=== PATIENT | male | born 1980 ===

== ENCOUNTER 2020-02-18 20:09 | Emergency (ER) | payer SELFPAY ==
[2020-02-18 20:54] VITALS: BP 123/77; PULSE 68; RESP 16; TEMP 36.8; O2SAT 96; BMI 25.0
[2020-02-18 21:47] LABS: Basophils # 0.1 10^3/uL (0.0-0.1); Basophils % 0.8 %; Eosinophils # 0.2 10^3/uL (0.0-0.8); Hematocrit 45.8 % (42.0-52.0); Hemoglobin 14.9 g/dL (11.7-16.6); Lymphocytes # 3.7 10^3/uL (0.8-4.8); Lymphocytes % 36.5 %; Mean Corpuscular HGB Conc 32.5 g/dL (30.0-36.0); Mean Corpuscular Hemoglobin 28.7 pg (28.0-34.0); Mean Corpuscular Volume 88.1 fL (80-94); Mean Platelet Volume 9.5 fL (7.4-10.4); Monocytes # 0.7 10^3/uL (0.2-0.9); Monocytes % 6.9 %; Neutrophils # 5.5 10^3/uL (1.8-7.7); Neutrophils % 53.4 %; Nucleated Red Blood Cells % 0 %; Platelet Count 350 10^3/cmm (130-400); Red Cell Distribution Width 12.5 % (12.1-15.1); White Blood Count 10.3 10^3/uL (4.0-10.0)
[2020-02-18 22:02] LABS: Alanine Aminotransferase 25 U/L (0-41); Albumin Level 4.9 g/dL (3.5-5.2); Alkaline Phosphatase 82 IU/L (40-130); Anion Gap 17.5 (5-19); Aspartate Amino Transferase 19 U/L (0-40); Blood Urea Nitrogen 13 mg/dL (6-20); Calcium 9.9 mg/dL (8.5-10.5); Carbon Dioxide 26 mmol/L (22-29); Chloride 102 mmol/L (98-107); Glomerular Filtration Rate 82.8 mL/min (90-130); Glucose 102 mg/dL (65-115); Lipase 44 U/L (13-60); Osmolality Calculated 288 mOsm/kg (285-295); Potassium 4.5 mmol/L (3.5-5.1); Sodium 141 mmol/L (136-145); Total Bilirubin 0.5 mg/dL (0.15-1.2); Total Protein 7.9 g/dL (6.6-8.7)
--- NOTE | 2020-02-19 | CTR_ITS ---
PROCEDURE INFORMATION: Exam: CT Abdomen And Pelvis With Contrast Exam date and time: 02/19/2020 12:01 AM Age: 39 years old Clinical indication: Abdominal pain; Generalized TECHNIQUE: Imaging protocol: Computed tomography of the abdomen and pelvis with intravenous contrast. Radiation optimization: All CT scans at this facility use at least one of these dose optimization techniques: automated exposure control; mA and/or kV adjustment per patient size (includes targeted exams where dose is matched to clinical indication); or iterative reconstruction. Contrast material: OMNI 300; Contrast volume: 300 ml; Contrast route: 20G; COMPARISON: No relevant prior studies available. RADIATION DOSE METRICS: Total DLP: 549.59 mGy-cm FINDINGS: Lungs: The lung bases are clear. Liver: Unremarkable. Gallbladder and bile ducts: No definite gallbladder abnormality by CT. No biliary tree dilation. Pancreas: Unremarkable. Spleen: Unremarkable. Adrenals: Unremarkable. Kidneys and ureters: Unremarkable. Stomach and bowel: There are no CT findings to strongly suggest diverticulitis. Appendix: The appendix is visualized and appears normal. Intraperitoneal space: No free air, ascites, or bowel distention. Vasculature: No evidence for abdominal aortic aneurysm. Lymph nodes: No retroperitoneal adenopathy. Bladder: Unremarkable as visualized. Reproductive: Prostate enlargement with transverse diameter of 4.5 cm. Bones/joints: No significant acute finding. Soft tissues: No significant acute finding. CT/CT abdomen pelvis w con* [id number] IMPRESSION: 1. Normal appendix. 2. No free air or bowel distention. 3. Other findings discussed above. Radiation Dose CTDIVOL = (mGy): DLP = 549.59 (mGy-cm)
[2020-02-19 00:04] VITALS: BP 119/80; PULSE 96; RESP 18; O2SAT 98
--- NOTE | 2020-02-19 00:21 | ED_ITS ---
HPI - Abdominal Pain General: Chief Complaint: Abdominal Pain Stated Complaint: lower right abd pain Time Seen by Provider: 02/18/20 23:54 Source: patient and seismic interpreter (Miri Stanley Pt.'s friend.) History of Present Illness: HPI narrative: Jerzy is a 39-year-old male who comes in complaining of right lower quadrant pain. States his pain began yesterday and has gradually worsened. He describes the pain as sharp in nature but there is always a dull ache present. He has had a loss of appetite but denies any nausea or vomiting. Denies any fevers or chills. He denies any urinary symptoms. He is not had any hematuria, radiation of his pain and he adamantly denies any testicular or penile pain. He denies having anything like this before. He denies injury to the area. He is unaware of anything that makes the symptoms better or worse. The patient states he has had pain similar to this in the past on the other side of his abdomen and he was diagnosed at that time with diverticulitis. He denies any blood in his stools, black tarry stools or diarrhea. He does not feel constipated. Associated Symptoms: Denies chills, coffee ground emesis, constipation, GI cramping, diarrhea, dysuria, fever(s), heartburn, hematochezia, hematuria, hematemesis, melena, nausea, syncope and vomiting Review of Systems Const: Denies: fever(s), chills, body aches, fatigue, malaise or diaphoresis Eyes: Denies: change in vision, blurry vision, blind spots or photophobia ENMT: Denies: throat pain, odynophagia, hoarseness, swelling of lips/tongue, ear or mastoid pain, ear discharge, change in hearing or nasal discharge Card: Denies: chest pain, palpitations, irregular heart rhythm, edema, lightheadedness, syncope, pre-syncope, dyspnea on exertion or orthopnea Resp: Denies: dyspnea, productive cough, non-productive cough, wheezing, hemoptysis or chest congestion GI: Reports: abdominal pain; Denies: nausea, vomiting, hematemesis, coffee ground emesis, heartburn, diarrhea, constipation, GI cramping, hematochezia or melena : Denies: flank pain, dysuria, urinary frequency, urinary urgency or hematuria Musc: Denies: neck pain, back pain, extremity pain, extremity swelling, joint pain, joint swelling, joint redness, joint warmth or joint stiffness Skin/Breast: Denies: rash, pruritus, erythema, skin tenderness or jaundice Neuro: Denies: headache(s), numbness in extremities, weakness in extremities, sensory changes, lack of coordination, difficulty walking, dizziness, vertigo, confusion or Slurred speech present Ananth/Lymph: Denies: easy bruising, easy bleeding, petechiae, purpura or enlarged lymph nodes All/Imm: Denies: urticaria, throat swelling, tongue swelling, facial swelling or acute wheezing PFSH ED PFSH: Medical History Diverticulosis Surgical History No history of previous surgery Social History Smoking and tobacco status: never smoked Physical Exam Const: COMMON NORMALS: no acute distress, patient oriented x3, no limitations, healthy appearing and well nourished GENERAL APPEARANCE: cooperative, well kempt and well developed HENMT: COMMON NORMALS: normocephalic, atraumatic, hearing grossly normal bilaterally, external ears normal, EAC's normal, Normal external nose present and moist oral mucous membranes HEAD & SCALP: normocephalic and atraumatic NOSE: Normal external nose present and Normal nares present EXTERNAL EAR: Yes external ears normal EXTERNAL AUDITORY CANAL: EAC's normal MOUTH: Normal oral and palatal mucosa present, lip normal and tongue normal Eye: COMMON NORMALS: Equal, round and reactive pupils present, EOMs intact bilaterally, conjunctivae normal and no scleral icterus GENERAL EYE: appearance normal, both eyes and all related structures ALIGNMENT: Yes alignment normal PERIORBITAL: periorbital findings normal EYELID: eyelids normal CONJUNCTIVA: Yes conjunctivae normal SCLERA: sclerae normal PUPIL: Yes Equal, round and reactive pupils present Neck/C-Spine: COMMON NORMALS: full ROM, no lymphadenopathy, supple, no meningeal signs and no JVD GENERAL: Yes normal visual inspection and Yes trachea midline Chest: COMMONS NORMALS: normal inspection of the chest and normal palpation of entire chest wall Resp: COMMON NORMALS: normal respiratory effort, No retractions, No use of accessory muscles and clear to auscultation bilaterally EFFORT & INSPECTION: Yes able to speak in complete sentences and Yes symmetric chest movement AUSCULTATION: clear to auscultation bilaterally, no crackles, no rales, no rhonchi and no wheezes Cardio: COMMON NORMALS: no JVD, regular rate, regular rhythm, S1 normal heart sound present, S2 normal heart sound present, No gallops present (Cardio), No clicks present (Cardio), No murmurs present (Cardio) and No rub (Cardio) RATE: regular rate RHYTHM: regular rhythm HEART SOUNDS: S1 normal heart sound present and S2 normal heart sound present GI: COMMON NORMALS: Soft to palpation and No hepatosplenomegaly present PALPATION: Yes Soft to palpation, Yes Tenderness to palpation present (GI) Details: RLQ (Mild without rebound or guarding.), No Guarding due to palpation present (GI), No Rigid due to palpation, Yes No hepatosplenomegaly present, No Hernia present, No Palpable mass present and No Pulsatile mass present : COMMON NORMALS: Yes no CVA tenderness, Yes Testes normal, Yes scrotum normal, Yes no scrotal swelling and Yes No hernias present BLADDER/KIDNEY EXAM: Yes no CVA tenderness SCROTUM: Yes testes descended bilaterally TESTES: Yes testicular lie normal, No Enlarged testicle(s) present, No testicular swelling, No testicular tenderness, No testicular mass and Yes epididymides normal Back/Pelvis: COMMON NORMALS: no CVA tenderness, thoracic and lumbar spine normal to inspection, no thoracic nor lumbar tenderness and thoraco-lumbar ROM normal Extremity: COMMON NORMALS: normal to inspection, full ROM, capillary refill normal, no joint enlargement, no clubbing, cyanosis or edema and no calf tenderness Neuro: COMMON NORMALS: patient oriented x3, CN's II-XII intact bilaterally, moves all extremities, no focal motor deficits and no sensory deficits noted MENINGEAL SIGNS: Yes no meningeal signs SPEECH: speech normal Psych: COMMON NORMALS: mental status grossly normal, Normal thought process present, cooperative, normal affect, speech normal and activity/motor behavior normal APPEARANCE: Yes well kempt SPEECH: Yes normal speech THOUGHT PROCESS: Normal thought process present Skin: COMMON NORMALS: no rashes or lesions noted, turgor normal, no jaundice, no petechiae and no mottling GENERAL SKIN EXAM: no rashes or lesions noted and turgor normal Course Vital Signs: Vital signs: Vital Signs Temperature 98.2 F 02/18/20 20:54 Pulse Rate 64 02/19/20 03:34 Respiratory Rate 18 02/19/20 03:34 Blood Pressure 117/77 02/19/20 03:34 Pulse Oximetry 97 02/19/20 03:34 MDM - Abdominal Pain MDM Narrative: Medical decision making narrative: Jerzy is a nice 39-year-old male who comes in complaining of right lower quadrant pain for 2 days. On examination he has no rebound tenderness but does have tenderness to palpation in the right lower quadrant. There is no rebound, no guarding and no rigidity. The patient has no fever and has not been vomiting. His testicular and penile exam are normal. CT scan does not reveal any evidence of appendicitis or diverticulitis. I have informed the patient that he needs to return here within 12 hours for recheck if his pain has not gone away. It is possible that appendicitis is developing but he was scanned too early to pick it up. Based upon his history I expected to see something if it was going to be positive but it is not possible that this is still early and he may need to have another examination and CT scan. The patient agreed to this plan had no questions or concerns. I did utilize his friend as an seismic interpreter and he had no questions. He was able to understand Dominican but he just could not speak it. At the time of discharge the patient was feeling better but did agree to return regardless for recheck. Differential Diagnosis: Differential diagnosis abdominal pain: Likely abdominal pain, acute appendicitis, calculus of kidney, constipation, diverticulitis, gastroenteritis, pancreatitis and small bowel obstruction Lab Data: Attestation: I reviewed the patient's lab results. Labs: Lab Results 02/18/20 02/18/20 02/19/20 Range/Units 21:35 21:35 00:35 WBC 10.3 H (4.0-10.0) 10^3/ uL RBC 5.20 (4.1-5.3) 10^6/u L Hgb 14.9 (11.7-16.6) g/dL Hct 45.8 (42.0-52.0) % MCV 88.1 (80-94) fL MCH 28.7 (28.0-34.0) pg MCHC 32.5 (30.0-36.0) g/dL RDW 12.5 (12.1-15.1) % Plt Count 350 (130-400) 10^3/c mm MPV 9.5 (7.4-10.4) fL Neut % (Auto) 53.4 % Lymph % (Auto) 36.5 % [place] % (Auto) 6.9 % Eos % (Auto) 2.0 % Baso % (Auto) 0.8 % Neut # (Auto) 5.5 (1.8-7.7) 10^3/u L Lymph # (Auto) 3.7 (0.8-4.8) 10^3/u L [place] # (Auto) 0.7 (0.2-0.9) 10^3/u L Eos # (Auto) 0.2 (0.0-0.8) 10^3/u L Baso # (Auto) 0.1 (0.0-0.1) 10^3/u L Nucleated RBC % (a uto) 0 % Nucleated RBCs # 0.0 /100WBC Sodium 141 (136-145) mmol/L Potassium 4.5 (3.5-5.1) mmol/L Chloride 102 (98-107) mmol/L Carbon Dioxide 26 (22-29) mmol/L Anion Gap 17.5 (5-19) BUN 13 (6-20) mg/dL Creatinine 1.0 (0.7-1.2) mg/dL GFR Calculation 82.8 L (90-130) mL/min Glucose 102 (65-115) mg/dL Calculated Osmolal ity 288 (285-295) mOsm/k g Lactic Acid (0.5-2.2) mmol/L Calcium 9.9 (8.5-10.5) mg/dL Total Bilirubin 0.5 (0.15-1.2) mg/dL AST 19 (0-40) U/L ALT 25 (0-41) U/L Alkaline Phosphata se 82 (40-130) IU/L Total Protein 7.9 (6.6-8.7) g/dL Albumin 4.9 (3.5-5.2) g/dL Globulin 3.0 (1.3-4.6) g/dL Lipase 44 (13-60) U/L Urine Color Yellow (Yellow) Urine Appearance Clear (CLEAR) Urine pH 6 (5-7) Ur Specific Gravit y 1.020 (1.005-1.030) Urine Protein Neg (Negative) Urine Glucose (UA) Norm (Normal) Urine Ketones Negative (Negative) Urine Blood Neg (Negative) Urine Nitrate Negative (Negative) Urine Bilirubin Neg (NEGATIVE) Urine Urobilinogen Norm (Negative) mg/dL Ur Leukocyte Elke ase Negative (Negative) 02/19/20 Range/Units 03:00 WBC (4.0-10.0) 10^3/ uL RBC (4.1-5.3) 10^6/u L Hgb (11.7-16.6) g/dL Hct (42.0-52.0) % MCV (80-94) fL MCH (28.0-34.0) pg MCHC (30.0-36.0) g/dL RDW (12.1-15.1) % Plt Count (130-400) 10^3/c mm MPV (7.4-10.4) fL Neut % (Auto) % Lymph % (Auto) % [place] % (Auto) % Eos % (Auto) % Baso % (Auto) % Neut # (Auto) (1.8-7.7) 10^3/u L Lymph # (Auto) (0.8-4.8) 10^3/u L [place] # (Auto) (0.2-0.9) 10^3/u L Eos # (Auto) (0.0-0.8) 10^3/u L Baso # (Auto) (0.0-0.1) 10^3/u L Nucleated RBC % (a uto) % Nucleated RBCs # /100WBC Sodium (136-145) mmol/L Potassium (3.5-5.1) mmol/L Chloride (98-107) mmol/L Carbon Dioxide (22-29) mmol/L Anion Gap (5-19) BUN (6-20) mg/dL Creatinine (0.7-1.2) mg/dL GFR Calculation (90-130) mL/min Glucose (65-115) mg/dL Calculated Osmolal ity (285-295) mOsm/k g Lactic Acid 0.8 (0.5-2.2) mmol/L Calcium (8.5-10.5) mg/dL Total Bilirubin (0.15-1.2) mg/dL AST (0-40) U/L ALT (0-41) U/L Alkaline Phosphata se (40-130) IU/L Total Protein (6.6-8.7) g/dL Albumin (3.5-5.2) g/dL Globulin (1.3-4.6) g/dL Lipase (13-60) U/L Urine Color (Yellow) Urine Appearance (CLEAR) Urine pH (5-7) Ur Specific Gravit y (1.005-1.030) Urine Protein (Negative) Urine Glucose (UA) (Normal) Urine Ketones (Negative) Urine Blood (Negative) Urine Nitrate (Negative) Urine Bilirubin (NEGATIVE) Urine Urobilinogen (Negative) mg/dL Ur Leukocyte Elke ase (Negative) Imaging Data ^: CT Abd/Pel: Radiologist's impression: [place] [address] CT Scan Report Signed Patient: Jerzy Hanks Unit #: [id number] : 1980 Age/Sex: 39 / M ADM Date: 02/18/20 Loc: ER Room/Bed: Attending Dr: Ordering Provider/Ordering MD: Renetta Khoury DO Date of Service: 02/19/20 Procedure(s): CT abdomen pelvis w con* [id number] Accession Number(s): [id number] Report Number: [id number] PROCEDURE INFORMATION: Exam: CT Abdomen And Pelvis With Contrast Exam date and time: 02/19/2020 12:01 AM Age: 39 years old Clinical indication: Abdominal pain; Generalized TECHNIQUE: Imaging protocol: Computed tomography of the abdomen and pelvis with intravenous contrast. Radiation optimization: All CT scans at this facility use at least one of these dose optimization techniques: automated exposure control; mA and/or kV adjustment per patient size (includes targeted exams where dose is matched to clinical indication); or iterative reconstruction. Contrast material: OMNI 300; Contrast volume: 300 ml; Contrast route: 20G; COMPARISON: No relevant prior studies available. RADIATION DOSE METRICS: Total DLP: 549.59 mGy-cm FINDINGS: Lungs: The lung bases are clear. Liver: Unremarkable. Gallbladder and bile ducts: No definite gallbladder abnormality by CT. No biliary tree dilation. Pancreas: Unremarkable. Spleen: Unremarkable. Adrenals: Unremarkable. Kidneys and ureters: Unremarkable. Stomach and bowel: There are no CT findings to strongly suggest diverticulitis. Appendix: The appendix is visualized and appears normal. Intraperitoneal space: No free air, ascites, or bowel distention. Vasculature: No evidence for abdominal aortic aneurysm. Lymph nodes: No retroperitoneal adenopathy. Bladder: Unremarkable as visualized. Reproductive: Prostate enlargement with transverse diameter of 4.5 cm. Bones/joints: No significant acute finding. Soft tissues: No significant acute finding. CT/CT abdomen pelvis w con* [id number] IMPRESSION: 1. Normal appendix. 2. No free air or bowel distention. 3. Other findings discussed above. Radiation Dose CTDIVOL = (mGy): DLP = 549.59 (mGy-cm) Dictated By: Rey Vargas MD Signed By: Rey Vargas MD Signed Date/Time: 02/19/20240 DD/ 7 Discharge Plan Discharge Patient Disposition: Home, Self-Care Clinical Impression: Abdominal pain Qualifiers: Abdominal location: right lower quadrant Qualified Code(s): R10.31 - Right lower quadrant pain Condition: Stable Prescriptions: No Action No Known Home Medications RF: 0 Discharge Orders: Discharge Order (Routine); Ordered 02/19/20 Ordered By: Renetta Khoury Referrals: Renetta Khoury [Emergency Provider] - (Return here to the ER tomorrow by noon if your pain persists and is not improving or gone. Return sooner if your symptoms worsen at all.) Bossman Leung MD [Physician] - 1-3 days Discharge Diet: Advance as tolerated and Clear Liquid Discharge Activity: Increase activity as tolerated Patient Instructions: Abdominal Pain (ED) Activity Restrictions/Additional Instructions: Please return to the ER immediately for any of the signs or symptoms listed on your discharge instruction sheets, worsening/changing of your symptoms, you are not getting better as quickly as expected, or for ANY other cause or concerns. A cause for your symptoms has not been determined. Developing appendicitis is still a possibility. If your pain is not gone by noon today please return to the ER for reevaluation to determine if appendicitis could be developing. Return to the ER sooner for increased pain, new onset of fever, you began to vomit, you have pain or burning when you urinate, you develop testicular pain, or for any other cause for concern. Stand Alone Forms: Work/School Release Discharge Date/Time: 02/19/20 03:36 Coding Level of Care Code ED Material Control Associate for Lasha Fwd Exam Comprehensive
[2020-02-19] MEDS: sodium chloride 0.9% 1,000 ML 100 ML IV (00:26)
[2020-02-19] MEDS: ondansetron 2 mg/ML SDV 2 mL 4 MG IVP (00:27)
[2020-02-19 00:40] VITALS: O2SAT 99
[2020-02-19 00:48] LABS: Add Urine Microscopic? NO
[2020-02-19 00:49] LABS: Bilirubin Urine Neg (NEGATIVE); Blood Urine Neg (Negative); Glucose Urine UA Norm (Normal); Ketones Urine Negative (Negative); Leukocyte Esterase Urine Negative (Negative); Nitrate Urine Negative (Negative); Protein Urine Neg (Negative); Urine Appearance Clear (CLEAR); Urine Color Yellow (Yellow); Urobilinogen Urine Norm (Negative); pH Urine 6 (5-7)
[2020-02-19] MEDS: iohexol 300 mg/mL 100 mL Btl IV (01:56)
[2020-02-19 03:17] LABS: Lactic Sepsis W/Reflex 0.8 mmol/L (0.5-2.2)
[2020-02-19 03:34] VITALS: BP 117/77; PULSE 64; RESP 18; O2SAT 97
--- NOTE | 2020-02-19 10:10 | DCPLANNER ---
annual greenhouse manager had message to schedule a follow up appointment for patient with general surgery. annual greenhouse manager called [facility], spoke with Rosa, gave clinic patients information. A follow up appointment was scheduled for Saturday, February 22, 2020 at 3:00. Clinic will call patient with appointment information.
--- NOTE | 2020-02-23 07:30 | DCPLANNER ---
Patient did not attend appointment scheduled for 02.22.20 with [facility].
== END 2020-02-19 03:36 | disposition home or self-care (01) ==
PROVIDERS: Nurse Practitioner Family; Emergency Provider Emergency Medicine
DX: R10.31 Right lower quadrant pain (principal)
CPT/HCPCS: 12345; 74177; 80053; 81003; 83605; 83690; 85025; 96361; 96374; 96375; 99282; 99283; J2405; J7030; Q9967

== ENCOUNTER 2020-02-19 20:12 | Emergency (ER) | payer SELFPAY ==
[2020-02-19 20:16] VITALS: BP 114/78; PULSE 91; RESP 16; TEMP 36.6; O2SAT 95; BMI 25.0
[2020-02-19 20:31] LABS: Basophils # 0.1 10^3/uL (0.0-0.1); Basophils % 0.6 %; Eosinophils # 0.2 10^3/uL (0.0-0.8); Eosinophils % 2.5 %; Hematocrit 45.4 % (42.0-52.0); Hemoglobin 14.9 g/dL (11.7-16.6); Lymphocytes # 3.1 10^3/uL (0.8-4.8); Lymphocytes % 33.3 %; Mean Corpuscular HGB Conc 32.8 g/dL (30.0-36.0); Mean Corpuscular Hemoglobin 28.9 pg (28.0-34.0); Mean Platelet Volume 9.3 fL (7.4-10.4); Monocytes # 0.6 10^3/uL (0.2-0.9); Monocytes % 6.5 %; Neutrophils # 5.3 10^3/uL (1.8-7.7); Neutrophils % 56.6 %; Nucleated Red Blood Cells % 0 %; Platelet Count 354 10^3/cmm (130-400); Red Blood Count 5.16 10^6/uL (4.1-5.3); Red Cell Distribution Width 12.4 % (12.1-15.1); White Blood Count 9.4 10^3/uL (4.0-10.0)
--- NOTE | 2020-02-19 20:32 | USR_ITS ---
PROCEDURE INFORMATION: Exam: US Scrotum Exam date and time: 02/19/2020 8:54 PM Age: 39 years old Clinical indication: Flank pain; Patient HX: PT has abdomen pain. Had a CT last night in er TECHNIQUE: Imaging protocol: Real-time ultrasound of the scrotum and contents with color Doppler and image documentation. COMPARISON: No relevant prior studies available. FINDINGS: Right testicle: The right testicle measures 3.0 by 4.8 x 2.6 cm. Testicular size and echogenicity is normal. The testicle is normally perfused as seen on color Doppler with spectral analysis. Left testicle: The left testicle measures 4.8 x 1.9 by 3.2 cm and has normal size and echogenicity. The testicle is normally perfused as seen on color Doppler spectral analysis. Epididymides: The right epididymal head is unremarkable. There is small right hydrocele. The left epididymal head measures 1.1 cm and is perfused and unremarkable. Scrotum: There is small left hydrocele. US/US scrotum [id number] IMPRESSION: 1. Normal testes and epididymides. 2. Small bilateral hydroceles, possibly physiologic
--- NOTE | 2020-02-19 20:32 | USR_ITS ---
PROCEDURE INFORMATION: Exam: US Abdomen Complete Exam date and time: 02/19/2020 8:54 PM Age: 39 years old Clinical indication: Abdominal pain; Flank; Right upper quadrant (ruq); Patient HX: PT has been in 2 days in a row with abd pain. CT done last night TECHNIQUE: Imaging protocol: Real-time ultrasound of the abdomen with image documentation. COMPARISON: CT abdomen pelvis w con* [id number] 02/19/2020 1:45 AM FINDINGS: Liver: The liver measures up to 15.5 cm and has normal size and echogenicity. Gallbladder: The gallbladder is contracted, limiting evaluation. Grossly no stones , sludge or surrounding edema. No sonographic Mcgill sign. Common bile duct: The common bile duct measures 3-4 mm which is normal. No dilatation of the biliary tree. Pancreas: The pancreas is mostly obscured by bowel gas. Right kidney: The right kidney measures 9.2 x 4.5 x 5.4 cm and is unremarkable. No shadowing stones or obstruction. Left kidney: The left kidney measures 9.7 x 6.1 x 5.8 cm and is unremarkable. No shadowing stones or obstruction. Spleen: The spleen measures up to 11.3 cm and is unremarkable. Aorta: The visualized abdominal aorta and IVC are normal. Inferior vena cava: Normal. Intraperitoneal space: No free fluid. US/US abdomen complete* [id number] IMPRESSION: 1. No significant abdominal findings. 2. Contracted gallbladder. No visible stones or sludge. No dilatation of the biliary tree
[2020-02-19] MEDS: ondansetron 2 mg/ML SDV 2 mL 4 MG IVP (20:41)
[2020-02-19] MEDS: sodium chloride 0.9% 1,000 ML 999 ML IV (20:41)
[2020-02-19 20:45] LABS: Alanine Aminotransferase 22 U/L (0-41); Albumin Level 4.5 g/dL (3.5-5.2); Alkaline Phosphatase 85 IU/L (40-130); Anion Gap 15.5 (5-19); Aspartate Amino Transferase 21 U/L (0-40); Blood Urea Nitrogen 9 mg/dL (6-20); Calcium 9.5 mg/dL (8.5-10.5); Carbon Dioxide 29 mmol/L (22-29); Chloride 98 mmol/L (98-107); Globulin 2.7 g/dL (1.3-4.6); Glomerular Filtration Rate 74.1 mL/min (90-130); Glucose 96 mg/dL (65-115); Lipase 65 U/L (13-60); Osmolality Calculated 282 mOsm/kg (285-295); Potassium 4.5 mmol/L (3.5-5.1); Sodium 138 mmol/L (136-145); Total Bilirubin 0.5 mg/dL (0.15-1.2); Total Protein 7.2 g/dL (6.6-8.7)
[2020-02-19 20:47] VITALS: BP 114/74; PULSE 70; RESP 18; O2SAT 97
--- NOTE | 2020-02-19 21:11 | ED_ITS ---
HPI - Abdominal Pain General: Chief Complaint: Abdominal Pain Stated Complaint: abd pain; recheck Time Seen by Provider: 02/19/20 20:16 History of Present Illness: HPI narrative: Jeryz is a very nice 39-year-old male who comes in complaining of continued abdominal pain. He states the pain waxes and wanes and does go away sometimes intermittently. I saw him last night for a similar complaint and he had a normal CT scan. He had no right upper quadrant pain he had no testicular pain. Patient returns though saying at this time his pain is worse than it was last night but it had gone away earlier today. He had eaten shortly before he came in and his symptoms returned. He denies any nausea or vomiting, fevers or chills, diarrhea or constipation, or urinary symptoms. Associated Symptoms: Denies chills, coffee ground emesis, constipation, GI cramping, diarrhea, dysuria, fever(s), heartburn, hematochezia, hematuria, hematemesis, melena, nausea, syncope and vomiting Review of Systems Const: Denies: fever(s), chills, body aches, fatigue, malaise or diaphoresis Eyes: Denies: change in vision, blurry vision, blind spots or photophobia ENMT: Denies: throat pain, odynophagia, hoarseness, swelling of lips/tongue, ear or mastoid pain, ear discharge, change in hearing or nasal discharge Card: Denies: chest pain, palpitations, irregular heart rhythm, edema, lightheadedness, syncope, pre-syncope, dyspnea on exertion or orthopnea Resp: Denies: dyspnea, productive cough, non-productive cough, wheezing, hemoptysis or chest congestion GI: Reports: abdominal pain; Denies: nausea, vomiting, hematemesis, coffee ground emesis, heartburn, diarrhea, constipation, GI cramping, hematochezia or melena : Denies: flank pain, dysuria, urinary frequency, urinary urgency or hematuria Musc: Denies: neck pain, back pain, extremity pain, extremity swelling, joint pain, joint swelling, joint redness, joint warmth or joint stiffness Skin/Breast: Denies: rash, pruritus, erythema, skin tenderness or jaundice Neuro: Denies: headache(s), numbness in extremities, weakness in extremities, sensory changes, lack of coordination, difficulty walking, dizziness, vertigo, confusion or Slurred speech present Ananth/Lymph: Denies: easy bruising, easy bleeding, petechiae, purpura or enlarged lymph nodes All/Imm: Denies: urticaria, throat swelling, tongue swelling, facial swelling or acute wheezing PFSH ED PFSH: Medical History Diverticulosis Surgical History No history of previous surgery Social History Smoking and tobacco status: never smoked Physical Exam Const: COMMON NORMALS: no acute distress, patient oriented x3, no limitations, healthy appearing and well nourished GENERAL APPEARANCE: cooperative, well kempt and well developed HENMT: COMMON NORMALS: normocephalic, atraumatic, hearing grossly normal bilaterally, external ears normal, EAC's normal, Normal external nose present and moist oral mucous membranes HEAD & SCALP: normocephalic and atraumatic NOSE: Normal external nose present and Normal nares present EXTERNAL EAR: Yes external ears normal EXTERNAL AUDITORY CANAL: EAC's normal MOUTH: Normal oral and palatal mucosa present, lip normal and tongue normal Eye: COMMON NORMALS: Equal, round and reactive pupils present, EOMs intact bilaterally, conjunctivae normal and no scleral icterus GENERAL EYE: appearance normal, both eyes and all related structures ALIGNMENT: Yes alignment normal PERIORBITAL: periorbital findings normal EYELID: eyelids normal CONJUNCTIVA: Yes conjunctivae normal SCLERA: sclerae normal PUPIL: Yes Equal, round and reactive pupils present Neck/C-Spine: COMMON NORMALS: full ROM, no lymphadenopathy, supple, no meningeal signs and no JVD GENERAL: Yes normal visual inspection and Yes trac hea midline Chest: COMMONS NORMALS: normal inspection of the chest and normal palpation of entire chest wall Resp: COMMON NORMALS: normal respiratory effort, No retractions, No use of accessory muscles and clear to auscultation bilaterally EFFORT & INSPECTION: Yes able to speak in complete sentences and Yes symmetric chest movement AUSCULTATION: clear to auscultation bilaterally, no crackles, no rales, no rhonchi and no wheezes Cardio: COMMON NORMALS: no JVD, regular rate, regular rhythm, S1 normal heart sound present, S2 normal heart sound present, No gallops present (Cardio), No clicks present (Cardio), No murmurs present (Cardio) and No rub (Cardio) RATE: regular rate RHYTHM: regular rhythm HEART SOUNDS: S1 normal heart sound present and S2 normal heart sound present GI: COMMON NORMALS: Soft to palpation and No hepatosplenomegaly present PALPATION: Yes Soft to palpation, Yes Tenderness to palpation present (GI) (Right upper quadrant and right lower quadrant. No rebound, no guarding and no rigidity.), No Guarding due to palpation present (GI), No Rigid due to palpation, Yes No hepatosplenomegaly present, No Hernia present, No Palpable mass present and No Pulsatile mass present : COMMON NORMALS: Yes no CVA tenderness BLADDER/KIDNEY EXAM: Yes no CVA tenderness Back/Pelvis: COMMON NORMALS: no CVA tenderness, thoracic and lumbar spine normal to inspection, no thoracic nor lumbar tenderness and thoraco-lumbar ROM normal Extremity: COMMON NORMALS: normal to inspection, full ROM, capillary refill normal, no joint enlargement, no clubbing, cyanosis or edema and no calf tenderness Neuro: COMMON NORMALS: patient oriented x3, CN's II-XII intact bilaterally, moves all extremities, no focal motor deficits and no sensory deficits noted MENINGEAL SIGNS: Yes no meningeal signs SPEECH: speech normal Psych: COMMON NORMALS: mental status grossly normal, Normal thought process present, cooperative, normal affect, speech normal and activity/motor behavior normal APPEARANCE: Yes well kempt SPEECH: Yes normal speech THOUGHT PROCESS: Normal thought process present Skin: COMMON NORMALS: no rashes or lesions noted, turgor normal, no jaundice, no petechiae and no mottling GENERAL SKIN EXAM: no rashes or lesions noted and turgor normal Course ED course: 2213 -patient's ultrasounds are unremarkable for a cause for his pain. Patient agrees to go ahead with a repeat CT scan to rule out appendicitis. Vital Signs: Vital signs: Vital Signs Temperature 97.9 F 02/19/20 20:16 Pulse Rate 78 02/19/20 23:33 Respiratory Rate 16 02/19/20 23:33 Blood Pressure 114/74 02/19/20 20:47 Pulse Oximetry 98 02/19/20 23:33 MDM - Abdominal Pain MDM Narrative: Medical decision making narrative: Jerzy is a 39-year-old male who comes in after recurrence of abdominal pain since being seen yesterday. Tonight he has negative ultrasounds of his testicles, gallbladder and a normal CT scan of his abdomen and pelvis. The patient agrees to follow-up with Dr. Leung as he has an appointment with him on Saturday. It is possible he is having biliary colic secondary to dyskinetic gallbladder. He understands the reasons for which to return here should his symptoms change or worsen. Further care can be dictated by Dr. Leung. Lab Data: Attestation: I reviewed the patient's lab results. Labs: Lab Results 02/19/20 02/19/20 02/19/20 Range/Units 20:24 20:24 20:24 WBC 9.4 (4.0-10.0) 10^3/ uL RBC 5.16 (4.1-5.3) 10^6/u L Hgb 14.9 (11.7-16.6) g/dL Hct 45.4 (42.0-52.0) % MCV 88.0 (80-94) fL MCH 28.9 (28.0-34.0) pg MCHC 32.8 (30.0-36.0) g/dL RDW 12.4 (12.1-15.1) % Plt Count 354 (130-400) 10^3/c mm MPV 9.3 (7.4-10.4) fL Neut % (Auto) 56.6 % Lymph % (Auto) 33.3 % Imperial % (Auto) 6.5 % Eos % (Auto) 2.5 % Baso % (Auto) 0.6 % Neut # (Auto) 5.3 (1.8-7.7) 10^3/u L Lymph # (Auto) 3.1 (0.8-4.8) 10^3/u L Imperial # (Auto) 0.6 (0.2-0.9) 10^3/u L Eos # (Auto) 0.2 (0.0-0.8) 10^3/u L Baso # (Auto) 0.1 (0.0-0.1) 10^3/u L Nucleated RBC % (a uto) 0 % Nucleated RBCs # 0.0 /100WBC ESR 9 (0-10) mm/hr Sodium 138 (136-145) mmol/L Potassium 4.5 (3.5-5.1) mmol/L Chloride 98 (98-107) mmol/L Carbon Dioxide 29 (22-29) mmol/L Anion Gap 15.5 (5-19) BUN 9 (6-20) mg/dL Creatinine 1.1 (0.7-1.2) mg/dL GFR Calculation 74.1 L (90-130) mL/min Glucose 96 (65-115) mg/dL Calculated Osmolal ity 282 L (285-295) mOsm/k g Lactic Acid (0.5-2.2) mmol/L Calcium 9.5 (8.5-10.5) mg/dL Total Bilirubin 0.5 (0.15-1.2) mg/dL AST 21 (0-40) U/L ALT 22 (0-41) U/L Alkaline Phosphata se 85 (40-130) IU/L C-Reactive Protein (0.0-4.9) mg/L Total Protein 7.2 (6.6-8.7) g/dL Albumin 4.5 (3.5-5.2) g/dL Globulin 2.7 (1.3-4.6) g/dL Lipase 65 H (13-60) U/L Urine Color (Yellow) Urine Appearance (CLEAR) Urine pH (5-7) Ur Specific Gravit y (1.005-1.030) Urine Protein (Negative) Urine Glucose (UA) (Normal) Urine Ketones (Negative) Urine Blood (Negative) Urine Nitrate (Negative) Urine Bilirubin (NEGATIVE) Urine Urobilinogen (Negative) mg/dL Ur Leukocyte Elke ase (Negative) Urine RBC (0-2) /hpf Urine WBC (0-5) /hpf Ur Squamous Epith Cells (0-5) Urine Bacteria (NONE) Urine Mucus Urine Sperm 02/19/20 02/19/20 02/19/20 Range/Units 20:24 21:54 22:00 WBC (4.0-10.0) 10^3/ uL RBC (4.1-5.3) 10^6/u L Hgb (11.7-16.6) g/dL Hct (42.0-52.0) % MCV (80-94) fL MCH (28.0-34.0) pg MCHC (30.0-36.0) g/dL RDW (12.1-15.1) % Plt Count (130-400) 10^3/c mm MPV (7.4-10.4) fL Neut % (Auto) % Lymph % (Auto) % Imperial % (Auto) % Eos % (Auto) % Baso % (Auto) % Neut # (Auto) (1.8-7.7) 10^3/u L Lymph # (Auto) (0.8-4.8) 10^3/u L Imperial # (Auto) (0.2-0.9) 10^3/u L Eos # (Auto) (0.0-0.8) 10^3/u L Baso # (Auto) (0.0-0.1) 10^3/u L Nucleated RBC % (a uto) % Nucleated RBCs # /100WBC ESR (0-10) mm/hr Sodium (136-145) mmol/L Potassium (3.5-5.1) mmol/L Chloride (98-107) mmol/L Carbon Dioxide (22-29) mmol/L Anion Gap (5-19) BUN (6-20) mg/dL Creatinine (0.7-1.2) mg/dL GFR Calculation (90-130) mL/min Glucose (65-115) mg/dL Calculated Osmolal ity (285-295) mOsm/k g Lactic Acid 1.0 (0.5-2.2) mmol/L Calcium (8.5-10.5) mg/dL Total Bilirubin (0.15-1.2) mg/dL AST (0-40) U/L ALT (0-41) U/L Alkaline Phosphata se (40-130) IU/L C-Reactive Protein 1.2 (0.0-4.9) mg/L Total Protein (6.6-8.7) g/dL Albumin (3.5-5.2) g/dL Globulin (1.3-4.6) g/dL Lipase (13-60) U/L Urine Color Yellow (Yellow) Urine Appearance Clear (CLEAR) Urine pH 7 (5-7) Ur Specific Gravit y 1.005 (1.005-1.030) Urine Protein Neg (Negative) Urine Glucose (UA) Norm (Normal) Urine Ketones Negative (Negative) Urine Blood Neg (Negative) Urine Nitrate Negative (Negative) Urine Bilirubin Neg (NEGATIVE) Urine Urobilinogen Norm (Negative) mg/dL Ur Leukocyte Elke ase Negative (Negative) Urine RBC None (0-2) /hpf Urine WBC 0-4 H (0-5) /hpf Ur Squamous Epith Cells None (0-5) Urine Bacteria Trace (NONE) Urine Mucus Trace Urine Sperm 1+ Imaging Data ^: Ultrasound Abdomen: Radiologist's impression: [address] [address] Ultrasound Report Signed Patient: Jerzy Hanks Unit #: [id number] : 1980 Age/Sex: 39 / M ADM Date: 02/19/20 Loc: ER Room/Bed: Attending Dr: Ordering Provider/Ordering MD: Renetta Khoury DO Date of Service: 02/19/20 Procedure(s): US abdomen complete* [id number] Accession Number(s): [id number] Report Number: [id number] PROCEDURE INFORMATION: Exam: US Abdomen Complete Exam date and time: 02/19/2020 8:54 PM Age: 39 years old Clinical indication: Abdominal pain; Flank; Right upper quadrant (ruq); Patient HX: PT has been in 2 days in a row with abd pain. CT done last night TECHNIQUE: Imaging protocol: Real-time ultrasound of the abdomen with image documentation. COMPARISON: CT abdomen pelvis w con* [id number] 02/19/2020 1:45 AM FINDINGS: Liver: The liver measures up to 15.5 cm and has normal size and echogenicity. Gallbladder: The gallbladder is contracted, limiting evaluation. Grossly no stones , sludge or surrounding edema. No sonographic Mcgill sign. Common bile duct: The common bile duct measures 3-4 mm which is normal. No dilatation of the biliary tree. Pancreas: The pancreas is mostly obscured by bowel gas. Right kidney: The right kidney measures 9.2 x 4.5 x 5.4 cm and is unremarkable. No shadowing stones or obstruction. Left kidney: The left kidney measures 9.7 x 6.1 x 5.8 cm and is unremarkable. No shadowing stones or obstruction. Spleen: The spleen measures up to 11.3 cm and is unremarkable. Aorta: The visualized abdominal aorta and IVC are normal. Inferior vena cava: Normal. Intraperitoneal space: No free fluid. US/US abdomen complete* [id number] IMPRESSION: 1. No significant abdominal findings. 2. Contracted gallbladder. No visible stones or sludge. No dilatation of the biliary tree Dictated By: Allan Tobar MD Signed By: Allan Tobar MD Signed Date/Time: 02/19/202229 DD/ 27 Ultrasound Scrotum and Contents: Radiologist's impression: [address] [place] [address] Ultrasound Report Signed Patient: Jerzy Hanks Unit #: [id number] : 1980 Age/Sex: 39 / M ADM Date: 02/19/20 Loc: ER Room/Bed: Attending Dr: Ordering Provider/Ordering MD: Renetta Khoury DO Date of Service: 02/19/20 Procedure(s): US scrotum [id number] Accession Number(s): [id number] Report Number: [id number] PROCEDURE INFORMATION: Exam: US Scrotum Exam date and time: 02/19/2020 8:54 PM Age: 39 years old Clinical indication: Flank pain; Patient HX: PT has abdomen pain. Had a CT last night in er TECHNIQUE: Imaging protocol: Real-time ultrasound of the scrotum and contents with color Doppler and image documentation. COMPARISON: No relevant prior studies available. FINDINGS: Right testicle: The right testicle measures 3.0 by 4.8 x 2.6 cm. Testicular size and echogenicity is normal. The testicle is normally perfused as seen on color Doppler with spectral analysis. Left testicle: The left testicle measures 4.8 x 1.9 by 3.2 cm and has normal size and echogenicity. The testicle is normally perfused as seen on color Doppler spectral analysis. Epididymides: The right epididymal head is unremarkable. There is small right hydrocele. The left epididymal head measures 1.1 cm and is perfused and unremarkable. Scrotum: There is small left hydrocele. US/US scrotum [id number] IMPRESSION: 1. Normal testes and epididymides. 2. Small bilateral hydroceles, possibly physiologic Dictated By: Allan Tobar MD Signed By: Allan Tobar MD Signed Date/Time: 02/19/202226 DD/ 24 Discharge Plan Discharge Patient Disposition: Home, Self-Care Clinical Impression: Abdominal pain Qualifiers: Abdominal location: right upper quadrant Qualified Code(s): R10.11 - Right upper quadrant pain Condition: Stable Prescriptions: No Action No Known Home Medications RF: 0 Discharge Orders: Discharge Order (Routine); Ordered 02/19/20 Ordered By: Renetta Khoury Referrals: Bossman Leung MD [Physician] - 1-3 days Discharge Diet: Clear Liquid Discharge Activity: Increase activity as tolerated Patient Instructions: Abdominal Pain (ED) Activity Restrictions/Additional Instructions: Please return to the ER immediately for any of the signs or symptoms listed on your discharge instruction sheets, worsening/changing of your symptoms, you are not getting better as quickly as expected, or for ANY other cause or concerns. Be certain to keep your appointment Saturday with Dr. Leung. Return to the ER sooner if you develop a recurrence of your pain, new onset of fever, vomiting, blood in your stools, or for any other cause for concern. Follow a clear liquid diet until your pain is completely gone and then you may slowly advance as tolerated. Discharge Date/Time: 02/19/20 23:35 Coding Level of Care Code ED Automatic Quilling Machine Operator for Chg Fwd Exam Comprehensive
[2020-02-19 22:12] LABS: C Reactive Protein 1.2 mg/L (0.0-4.9)
--- NOTE | 2020-02-19 22:13 | CTR_ITS ---
PROCEDURE INFORMATION: Exam: CT Abdomen And Pelvis With Contrast Exam date and time: 02/19/2020 10:17 PM Age: 39 years old Clinical indication: Abdominal pain; Generalized TECHNIQUE: Imaging protocol: Computed tomography of the abdomen and pelvis with intravenous contrast. Radiation optimization: All CT scans at this facility use at least one of these dose optimization techniques: automated exposure control; mA and/or kV adjustment per patient size (includes targeted exams where dose is matched to clinical indication); or iterative reconstruction. Contrast material: VISI; Contrast volume: 95 ml; Contrast route: 20G; COMPARISON: CT abdomen pelvis w con* [id number] 02/19/2020 1:45 AM RADIATION DOSE METRICS: Total DLP: 533.54 mGy-cm FINDINGS: Liver: Normal. No mass. Gallbladder and bile ducts: The gallbladder is contracted. Pancreas: Normal. No ductal dilation. Spleen: Normal. No splenomegaly. Adrenals: Normal. No mass. Kidneys and ureters: Normal. No hydronephrosis. Stomach and bowel: Unremarkable. No obstruction. No mucosal thickening. Appendix: No evidence of appendicitis. Intraperitoneal space: Unremarkable. No free air. No significant fluid collection. Vasculature: Unremarkable. No abdominal aortic aneurysm. Lymph nodes: Unremarkable. No enlarged lymph nodes. Bladder: Unremarkable as visualized. Reproductive: Unremarkable as visualized. Bones/joints: Unremarkable. No acute fracture. Soft tissues: Small left inguinal hernia consist of fatty tissue only. CT/CT abdomen pelvis w con* [id number] IMPRESSION: No significant abdominal or pelvic findings. Radiation Dose CTDIVOL = (mGy): DLP = 533.54 (mGy-cm)
[2020-02-19] MEDS: iodixanol 320 mg/mL 100mL Btl IV (22:26)
[2020-02-19 22:28] LABS: Bilirubin Urine Neg (NEGATIVE); Blood Urine Neg (Negative); Glucose Urine UA Norm (Normal); Ketones Urine Negative (Negative); Leukocyte Esterase Urine Negative (Negative); Nitrate Urine Negative (Negative); Protein Urine Neg (Negative); Specific Gravity, Urine 1.005 (1.005-1.030); Urine Appearance Clear (CLEAR); Urine Color Yellow (Yellow); Urobilinogen Urine Norm (Negative); pH Urine 7 (5-7)
[2020-02-19 22:29] LABS: Bacteria Urine TRACE; Mucus Urine TRACE; WBC Urine 0-4 /hpf (0-5)
[2020-02-19 22:30] LABS: Add Urine Culture? No; Sperm Urine 1+
[2020-02-19 22:57] LABS: Erythrocyte Sedimentation Rate 9 mm/hr (0-10)
[2020-02-19 23:33] VITALS: PULSE 78; RESP 16; O2SAT 98
--- NOTE | 2020-02-23 11:43 | DCPLANNER ---
child care centre manager had message to schedule a follow up appointment for patient with [facility]. Patient had an appointment scheduled for 02.22.20, and he did not attend the appointment. 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 child care centre manager wanted to confirm with patient that he wanted the follow up appointment scheduled.
== END 2020-02-19 23:35 | disposition home or self-care (01) ==
PROVIDERS: Emergency Provider Emergency Medicine
DX: R10.11 Right upper quadrant pain (principal)
CPT/HCPCS: 12345; 74177; 76700; 76870; 80053; 81001; 83605; 83690; 85025; 85651; 86140; 96361; 96374; 96375; 99282; 99283; J2405; J7030; Q9967